=== PATIENT | female | born 1955 | race Two or more races ===

== ENCOUNTER 2024-09-30 10:47 | Outpatient (AMB) | payer OTHER, SELFPAY ==
[2024-09-30 11:09] VITALS: BP 132/83; PULSE 63; RESP 18; TEMP 37.1; O2SAT 97; BMI 27.6
--- NOTE | 2024-09-30 11:09 | ORTHONT_ITS ---
Vital signs 09/30/24 11:09 Height 1.65 m Height Method Measured Weight 75.325 kg Weight Measurement Method Standing Scale BMI 27.6 BP 132/83 H Blood Pressure Source Automatic Cuff Blood Pressure Location Left Upper Arm Position Sitting Respiration 18 Pulse 63 Pulse Source Monitor Temp 98.7 F Temp Source Oral Pulse Oximetry (%) 97 Oxygen Delivery Method Room Air Comment PT DID NOT BRING IN MEDICATION TAKING Subjective Visit Visit for: new patient and hip Immunization / Flu Flu Vaccine in the Last 12 Months: No Flu Vaccine Exclusion Criteria: Already Received History of Present Illness Chief complaint: PT HERE FOR LEFT KNEE MENISCUS TEAR HERE WITH SPOUSE Patient is a 49-pjwu-qwl-year-old female with left knee pain and left knee arthritis. The pain is affecting her quality life and happiness. She has not tried significant conservative treatment. The pain is ongoing for over a year but she has had pain really severe for over 2 months. She has had no injections or known therapy. Personal History Occupation: NONE Pain Pain level (0-10): 10 Pain duration: CONSTANT Pain location: inside (medial), outside (lateral), anterior and posterior Pain quality: sharp Pain timing: night and increases with activity Associated signs & symptoms: none Ambulatory data Ambulatory device: none Review of Systems Review of Systems: All systems negative unless otherwise noted in HPI. Exam Exam Patient is in no acute distress and is cooperative with the examination today. Breathing is nonlabored. Patient has a normal mood and affect. Bilateral extremities were evaluated and demonstrates sensation intact to light touch. Palpable pedal pulses are present. No significant edema is present. Bilateral hips were examined. The patient has no pain with log roll of the hips. Internal rotation to 30 degrees and external rotation to 30 degrees is painless. Negative FADIR. Right knee was examined today. The right knee is in reasonable alignment. Range of motion from 0-120 degrees. Knee is stable to varus and valgus as well as AP translation with <5mm. Patient has a negative McMurrays. There is no pain with patellofemoral compression and no crepitus noted. The knee is nontender to palpation. Left knee was examined today. The left knee is in [varus] alignment. Range of motion from [0-115] degrees. Knee is stable to varus and valgus as well as AP translation with <5mm. Patient has a [negative] McMurrays. There is [no] pain with patellofemoral compression and [no] crepitus noted. The knee is [tender] to palpation [medially]. X-rays from [facility] reviewed by me today. She has [id number] arthritis of the left knee. Assessment and Plan Problem List (1) Arthritis of left knee: Status: Acute Plan: Patient is a 69-year-old female with left knee pain and left knee arthritis. We discussed that we should try conservative treatment. We discussed that she has ydxg-oz-rtom arthritis and she may need a total knee replacement in future. Will start with meloxicam as well as a cortisone injection today. Recommend knee cortisone injection as patient would like to proceed with conservative treatment at this time. The risks and benefits of the procedure were reviewed with the patient and patient gave verbal consent to continue with the procedure. Procedure: performed by Dr. Jenkins Using sterile technique the left knee was thoroughly prepped with alcohol, and approximately 1 cc of Kenalog 40 mg/mL and 4 cc of 1% lidocaine was injected without resistance into the medial tibial femoral joint space. The patient tolerated the procedure. Advanced Care Planning Discussion Advance care planning discussed with:: patient Office Procedures GNS Level of Care Nursing/Assessment Patient Status: Initial/New Patient Nursing Assessment/Reassesment: BP Monitoring, Medication Reconciliation, Update PMH in EMR and Vital Signs Coordination of Care: Complex Care and Chronic Disease 1-5, Consent,records obtained, informed consent, 1 Ins Authorization, Lab and Imaging orders and Results/Orders obtained New Patient Charge New Patient Point Assignment: [id number] New Patient Point Charge: CIRCULATION REPRESENTATIVE Level 3 (6828-9990) Surgical Proc/IM SQ injection Major Surgical Procedure: Yes (KNEE INJECTION ) Medication Given Medication Given Medication Given: Yes Documented Dose Given: 4 Route: Infiitration Medication Given Medication Given Medication Given: Yes Documented Dose Given: 1 Route: Infiitration Office Meds Xylocaine 10 mg/mL (1 %) injection solution Performing Provider: Ajit Jenkins MD Performing Location: [facility] Administered by: Ajit Jenkins MD on 09/30/24 11:29 Dose Route Admin Location Dispensed Lot Number Expiration Date [facility] [employer] 20 mL Infiltration 20 mL [id number] [employer] triamcinolone acetonide 40 mg/mL suspension for injection Performing Provider: Ajit Jenkins MD Performing Location: [facility] Administered by: Ajit Jenkins MD on 09/30/24 11:29 Dose Route Admin Location Dispensed Lot Number Expiration Date [facility] Home Care Giver 40 mg intra-articular 1 mL [id number] [employer] Past Medical History Past Medical History Have you ever been diagnosed with any of the following:
== END 2024-09-30 11:31 | disposition home or self-care (01) ==
PROVIDERS: Supervising Provider Orthopaedic Surgery Adult Reconstructive Orthopaedic Surgery; Visit Provider Orthopaedic Surgery Adult Reconstructive Orthopaedic Surgery
DX: M17.12 Unilateral primary osteoarthritis, left knee (principal); M25.562 Pain in left knee
CPT/HCPCS: 20610; 99203; J3301; J3490; G0463

== ENCOUNTER 2024-11-25 14:53 | Outpatient (AMB) | payer OTHER, SELFPAY ==
[2024-11-25 15:29] VITALS: BP 122/71; PULSE 74; RESP 19; TEMP 36.6; O2SAT 98; BMI 27.5
--- NOTE | 2024-11-25 15:29 | ORTHONT_ITS ---
Vital signs 11/25/24 15:29 Height 1.65 m Height Method Stated Weight 74.928 kg Weight Measurement Method Standing Scale BMI 27.5 BP 122/71 Blood Pressure Source Automatic Cuff Blood Pressure Location Left Upper Arm Position Sitting Respiration 19 Pulse 74 Pulse Source Monitor Temp 97.8 F Temp Source Temporal Artery Scan Pulse Oximetry (%) 98 Oxygen Delivery Method Room Air Med/Allergies Allergies & Medications Allergies No Known Allergies Allergy (Verified 11/25/24 15:31) Medication Reconciliation meloxicam 7.5 mg tablet 7.5 mg PO QDAY #45 tabs 09/30/24 [Rx Confirmed 11/25/24] Exam Exam Patient is in no acute distress and is cooperative with the examination today. Breathing is nonlabored. In no respiratory distress. Bilateral extremities were evaluated and demonstrates sensation intact to light touch. Palpable pedal pulses are present. No significant edema is present. Bilateral hips were examined. The patient has no pain with log roll of the hips. Internal rotation to 30 degrees and external rotation to 30 degrees is painless. Negative FADIR. The left knee was examined. The left knee is in varus alignment. Range of motion from 0-115 degrees. Knee is stable to varus and valgus as well as AP translation with <5mm. Patient has a negative McMurrays. There is no pain with patellofemoral compression and no crepitus noted. The knee is tender to palpation medially. The right knee was also examined. The right knee is in varus alignment. Range of motion from 0-120 degrees. Knee is stable to varus and valgus as well as AP translation with <5mm. Patient has a negative McMurrays. There is no pain with patellofemoral compression and no crepitus noted. The knee is tender to palpation medially. X-rays of the left knee were personally reviewed. This demonstrates severe arthritis with osteophytes and joint space narrowing medial Assessment and Plan Problem List (1) Arthritis of left knee: Status: Acute Plan: Frances Is a pleasant 69-year-old female with severe left knee pain and left knee arthritis. The pain is affecting her quality life and happiness. She is try nonoperative treatment occluding injections and anti-inflammatories. We discussed total knee replacement as a reasonable option The nature and purpose of the total knee replacement, alternative method(s) of treatment, the material risks involved, and the possibility of complications were fully explained to the patient. The patient does NOT have any of the following contraindications to TKA: - Active infection of the knee joint, OR - Active systemic bacteremia, OR - Active skin infection or open wound at surgical site, OR - Neuropathic arthritis, OR - Severe, rapidly progressive neurological disease, OR - Severe medical condition that makes risks of surgery outweigh the potential benefit The patient was told the most common risks and complications associated with a total knee replacement include, but are not limited to: blood clots in the leg, fatal pulmonary embolism, dislocation of the prosthesis, intraoperative and postoperative fractures of the femur or tibia, infection, failure of the prosthesis or grafting materials, complications from anesthesia, reactions to blood transfusions, postoperative leg length inequality, instability of the knee replacement, nerve damage or injury, vascular injury, delayed wound healing, infection, other injury or even . In addition, there are risks associated with anesthesia given during this operation. Also, the patient was told that after undergoing a total knee replacement there may still be persistent pain or disability. The patient was informed that the success of this operation in part depends upon the mechanical devices which are going to be implanted and that these devices can fail or malfunction, and may need to be repaired or replaced and there are no guarantees as to the longevity of this device or its parts and that it or its parts could fail prematurely. The patient was also notified that during the course of surgery, there may be a need to use bone graft from donors, and that any bone graft used will be carefully screened for communicable diseases, including AIDS, hepatitis, Octavio-Creutzfeldt, or other diseases, but despite the screening procedures, there is a small chance that they could contract one of these diseases. Finally, the patient was asked to follow completely and fully with all advice and recommended treatments, and that recovery and ultimate outcome are affected by their compliance with recommended treatment. We discussed the risks, benefits and treatment alternatives, and the patient is interested in proceeding with surgery. We will try to set this up as expeditiously as possible. Advanced Care Planning Discussion Advance care planning discussed with:: patient Office Procedures GNS Level of Care Nursing/Assessment Patient Status: Established Patient Nursing Assessment/Reassesment: Medication Reconciliation, Update PMH in EMR and Vital Signs Coordination of Care: Complex Care and Chronic Disease 1-5, Education Complex Pt/Fam, Consent,records obtained, informed consent, Results/Orders obtained and Staff clarify orders Established Patient Charge Established Patient Point Assignment: 95 Established Patient Point Charge: EP Level 3 (80-115) MA Intake Visit Data Collection New Patient or Established: Established Patient (seen at [facility] within 3 years) Reason for Visit:: F/U KNEE PAIN Seen by Clinical Staff ONLY (RN/MA): No Ham Curer Required: No PCP or OBGYN visit in last 3 months: Yes Hx Now: No Do You Feel Safe at Home: Yes Authorities Contacted: N/A Questionairres Past Medical History Past Medical History Have you ever been diagnosed with any of the following: Subjective Visit Visit for: follow up visit and knee Immunization / Flu Flu Vaccine in the Last 12 Months: No Flu Vaccine Exclusion Criteria: Refused by Patient History of Present Illness Chief complaint: Left knee pain Frances is a pleasant 69-year-old female with left knee pain and left knee arthritis. This is been ongoing for several years. She is tried injections, anti-inflammatories, and weight loss modification. The pain continues to persist despite this. The injections are not working for a long period of time. The pain is affecting her quality life and happiness. She reports that she is miserable because of the left knee pain Pain Pain level (0-10): 10 Pain duration: CONSTANT Pain location: inside (medial) and anterior Pain quality: aching and burning Pain timing: night, increases with activity and stairs Associated signs & symptoms: none Ambulatory data Ambulatory device: none Treatments Improvement with previous injections: No Improvement with PT: No Improvement with NSAIDS: no Review of Systems Review of Systems: All systems negative unless otherwise noted in HPI.
== END 2024-11-25 15:55 | disposition home or self-care (01) ==
PROVIDERS: Supervising Provider Orthopaedic Surgery Adult Reconstructive Orthopaedic Surgery; Visit Provider Orthopaedic Surgery Adult Reconstructive Orthopaedic Surgery
DX: M17.12 Unilateral primary osteoarthritis, left knee (principal); M25.562 Pain in left knee
CPT/HCPCS: 99213; G0463

== ENCOUNTER 2024-12-30 10:26 | Outpatient (AMB) | payer OTHER, SELFPAY ==
[2024-12-30 10:44] VITALS: BP 156/90; PULSE 57; RESP 18; TEMP 36.1; O2SAT 98; BMI 27.1
--- NOTE | 2024-12-30 10:44 | ORTHONT_ITS ---
Vital signs 12/30/24 10:44 Height 1.65 m Height Method Stated Weight 73.709 kg Weight Measurement Method Standing Scale BMI 27.1 BP 156/90 H Blood Pressure Source Automatic Cuff Blood Pressure Location Right Upper Arm Position Sitting Respiration 18 Pulse 57 L Pulse Source Monitor Temp 96.9 F Temp Source Temporal Artery Scan Pulse Oximetry (%) 98 Oxygen Delivery Method Room Air Med/Allergies Allergies & Medications Allergies No Known Allergies Allergy (Verified 12/30/24 10:45) Medication Reconciliation meloxicam 7.5 mg tablet 7.5 mg PO QDAY #45 tabs 09/30/24 [Rx Confirmed 12/30/24] Exam Exam Patient is in no acute distress and is cooperative with the examination today. Breathing is nonlabored. In no respiratory distress. Bilateral extremities were evaluated and demonstrates sensation intact to light touch. Palpable pedal pulses are present. No significant edema is present. Bilateral hips were examined. The patient has no pain with log roll of the hips. Internal rotation to 30 degrees and external rotation to 30 degrees is painless. Negative FADIR. The left knee was examined. The left knee is in varus alignment. Range of motion from 0-115 degrees. Knee is stable to varus and valgus as well as AP translation with <5mm. Patient has a negative McMurrays. There is no pain with patellofemoral compression and no crepitus noted. The knee is tender to palpation medially. The right knee was also examined. The right knee is in varus alignment. Range of motion from 0-120 degrees. Knee is stable to varus and valgus as well as AP translation with <5mm. Patient has a negative McMurrays. There is no pain with patellofemoral compression and no crepitus noted. The knee is tender to palpation medially. X-rays of the left knee were personally reviewed. This demonstrates severe arthritis with osteophytes and joint space narrowing medial Assessment and Plan Problem List (1) Arthritis of left knee: Status: Acute Plan: Frances Is a pleasant 69-year-old female with severe left knee pain and left knee arthritis. The pain is affecting her quality life and happiness. She is try nonoperative treatment occluding injections and anti-inflammatories. We discussed total knee replacement as a reasonable option. She is still waiting for cardiology clearance. This will likely delay the surgery for a while The nature and purpose of the total knee replacement, alternative method(s) of treatment, the material risks involved, and the possibility of complications were fully explained to the patient. The patient does NOT have any of the following contraindications to TKA: - Active infection of the knee joint, OR - Active systemic bacteremia, OR - Active skin infection or open wound at surgical site, OR - Neuropathic arthritis, OR - Severe, rapidly progressive neurological disease, OR - Severe medical condition that makes risks of surgery outweigh the potential benefit The patient was told the most common risks and complications associated with a total knee replacement include, but are not limited to: blood clots in the leg, fatal pulmonary embolism, dislocation of the prosthesis, intraoperative and postoperative fractures of the femur or tibia, infection, failure of the prosthesis or grafting materials, complications from anesthesia, reactions to blood transfusions, postoperative leg length inequality, instability of the knee replacement, nerve damage or injury, vascular injury, delayed wound healing, infection, other injury or even . In addition, there are risks associated with anesthesia given during this operation. Also, the patient was told that after undergoing a total knee replacement there may still be persistent pain or disability. The patient was informed that the success of this operation in part depends upon the mechanical devices which are going to be implanted and that these devices can fail or malfunction, and may need to be repaired or replaced and there are no guarantees as to the longevity of this device or its parts and that it or its parts could fail prematurely. The patient was also notified that during the course of surgery, there may be a need to use bone graft from donors, and that any bone graft used will be carefully screened for communicable diseases, including AIDS, hepatitis, Octavio-Creutzfeldt, or other diseases, but despite the screening procedures, there is a small chance that they could contract one of these diseases. Finally, the patient was asked to follow completely and fully with all advice and recommended treatments, and that recovery and ultimate outcome are affected by their compliance with recommended treatment. We discussed the risks, benefits and treatment alternatives, and the patient is interested in proceeding with surgery. We will try to set this up as expeditiously as possible. Advanced Care Planning Discussion Advance care planning discussed with:: patient Office Procedures GNS Level of Care Nursing/Assessment Patient Status: Established Patient Nursing Assessment/Reassesment: Medication Reconciliation, Update PMH in EMR and Vital Signs Coordination of Care: Complex Care and Chronic Disease 1-5, Education Complex Pt/Fam, Consent,records obtained, informed consent, Results/Orders obtained and Staff clarify orders Established Patient Charge Established Patient Point Assignment: 95 Established Patient Point Charge: EP Level 3 (80-115) MA Intake Visit Data Collection New Patient or Established: Established Patient (seen at [facility] within 3 years) Reason for Visit:: PRE-OP LT TKA Seen by Clinical Staff ONLY (RN/MA): No Verbal consent obtained for Telemed visit?: No Property Disposal Manager Required: No PCP or OBGYN visit in last 3 months: Yes Hx Now: No Do You Feel Safe at Home: Yes Authorities Contacted: N/A Questionairres Past Medical History Past Medical History Have you ever been diagnosed with any of the following: Subjective Visit Visit for: follow up visit and knee Immunization / Flu Flu Vaccine in the Last 12 Months: No Flu Vaccine Exclusion Criteria: No Exclusion Criteria History of Present Illness Chief complaint: PRE-OP LT TKA Frances is a pleasant 69-year-old Female with severe knee pain. She was scheduled for a left total knee replacement but was told that she needs to get a model engine mechanic. Unfortunately, her model engine mechanic is back down to 22 March. We will try to find one for her so she can get a sooner appointment Pain Pain level (0-10): 10 Pain duration: ALL DAY Pain location: inside (medial), outside (lateral) and anterior Pain quality: sharp, dull and aching Pain timing: increases with activity Associated signs & symptoms: none Ambulatory data Ambulatory device: none Treatments Improvement with previous injections: No Improvement with PT: No Improvement with NSAIDS: no Review of Systems Review of Systems: All systems negative unless otherwise noted in HPI.
== END 2024-12-30 11:01 | disposition home or self-care (01) ==
LOC: HODSRG 10:26
PROVIDERS: Supervising Provider Orthopaedic Surgery Adult Reconstructive Orthopaedic Surgery; Visit Provider Orthopaedic Surgery Adult Reconstructive Orthopaedic Surgery
DX: M17.12 Unilateral primary osteoarthritis, left knee (principal)
CPT/HCPCS: 99213; G0463

== ENCOUNTER 2025-06-16 10:16 | Outpatient (AMB) | payer OTHER, SELFPAY ==
--- NOTE | 2025-06-16 10:36 | ORTHONT_ITS ---
Vital signs 06/16/25 10:37 Height 1.65 m Height Method Measured Weight 75.098 kg Weight Measurement Method Standing Scale BMI 27.6 BP 181/108 H Blood Pressure Source Automatic Cuff Blood Pressure Location Left Upper Arm Position Sitting Respiration 18 Pulse 62 Pulse Source Monitor Temp 97.8 F Temp Source Temporal Artery Scan Pulse Oximetry (%) 97 Oxygen Delivery Method Room Air Med/Allergies Allergies & Medications Allergies No Known Allergies Allergy (Verified 06/16/25 10:38) Medication Reconciliation meloxicam 7.5 mg tablet 7.5 mg PO QDAY #45 tabs 09/30/24 [Rx Confirmed 06/16/25] Assessment and Plan Advanced Care Planning Discussion Advance care planning discussed with:: patient Office Procedures GNS Level of Care Nursing/Assessment Patient Status: Established Patient Nursing Assessment/Reassesment: Medication Reconciliation, Orthostatic Vitals, Update PMH in EMR and Vital Signs Coordination of Care: Complex Care and Chronic Disease 1-5, Education Complex Pt/Fam, Consent,records obtained, informed consent, Results/Orders obtained and Staff clarify orders Established Patient Charge Established Patient Point Assignment: 105 Established Patient Point Charge: EP Level 3 (80-115) MA Intake Visit Data Collection New Patient or Established: Established Patient (seen at [facility] within 3 years) Reason for Visit:: PRE-OP LT TKA Seen by Clinical Staff ONLY (RN/MA): No Verbal consent obtained for Telemed visit?: No Picture Painter Required: No PCP or OBGYN visit in last 3 months: Yes Hx Now: No Do You Feel Safe at Home: Yes Authorities Contacted: N/A Questionairres Past Medical History Past Medical History Have you ever been diagnosed with any of the following: Respiratory Problems Smoking: No Smoking Cessation Counseling: No Smoking Exposure: No Subjective Visit Visit for: follow up visit and knee Immunization / Flu Flu Vaccine in the Last 12 Months: No Flu Vaccine Exclusion Criteria: No Exclusion Criteria History of Present Illness Chief complaint: PRE-OP LT TKA Personal History Red flag PMH: none BMI Counceling provided: Yes Pain Pain level (0-10): 10 Pain duration: ALL DAY Pain location: inside (medial), outside (lateral) and anterior Pain quality: sharp, dull and aching Pain timing: increases with activity Associated signs & symptoms: none Ambulatory data Ambulatory device: none Treatments Improvement with previous injections: No Improvement with PT: No Improvement with NSAIDS: no Review of Systems Review of Systems: All systems negative unless otherwise noted in HPI.
[2025-06-16 10:37] VITALS: BP 181/108; PULSE 62; RESP 18; TEMP 36.6; O2SAT 97; BMI 27.6
== END 2025-06-16 11:34 | disposition home or self-care (01) ==
LOC: HODSRG 10:16
PROVIDERS: PCP Orthopaedic Surgery Adult Reconstructive Orthopaedic Surgery; Referring Provider Orthopaedic Surgery Adult Reconstructive Orthopaedic Surgery; Supervising Provider Orthopaedic Surgery Adult Reconstructive Orthopaedic Surgery; Visit Provider Orthopaedic Surgery Adult Reconstructive Orthopaedic Surgery
DX: Z01.818 Encounter for other preprocedural examination (principal)
CPT/HCPCS: 99213; G0463

== ENCOUNTER → 2025-07-03 | Outpatient (CLI) | payer OTHER, SELFPAY ==
--- NOTE | 2025-07-03 12:34 | XR_ITS ---
Examination: CT left lower extremity, without contrast. 2-D sagittal reconstructions. 2-D coronal reconstructions. 3-D reconstructions. Date and time of exam:July 03, 2025, 1336 hours INDICATIONS: Diagnosis left knee unilateral osteoarthritis, knee pain several years CTDI: vol (mGy):25.47 DLP: (mGycm):951 Technique: Multiple 1.25 mm axial sections of the left lower extremity without intravenous contrast have been obtained. 2-D sagittal and coronal reconstructions have been obtained. 3-D reconstructions have been obtained. Low dose protocols were performed. One or more of the following dose reduction techniques were used; automated exposure control, adjustment of the mA and/or KV according to patient size, use of iterative reconstruction technique. Findings: Moderate osteopenia Mild to moderate narrowing hip joints Advanced left knee tricompartment osteoarthritis including severe narrowing medial joint space No fracture No avascular necrosis IMPRESSION: Advanced left knee tricompartment osteoarthritis
--- NOTE | 2025-07-03 12:56 | XR_ITS ---
Examination: Bilateral knees 2 views Right lateral knee left lateral knee 2 views Bilateral axial knees single view TECHNIQUE: Bilateral AP knees standing single view, bilateral PA knees standing single view flexion Standing right lateral knee left lateral knee 2 views Bilateral axial knees single view total 5 views Date and time: July 03, 2025 1300 hours INDICATIONS: Bilateral knee pain beginning several years ago. FINDINGS: Advanced narrowing [id number] both medial lateral joint spaces Severe osteopenia Significant osteoarthritis patellofemoral joints Bilateral mild to moderate knee effusions No fractures IMPRESSION: Bilateral advanced tricompartment osteoarthritis
== END | disposition home or self-care (01) ==
LOC: CCTX 12:22
PROVIDERS: Referring Provider Orthopaedic Surgery Adult Reconstructive Orthopaedic Surgery; Visit Provider Orthopaedic Surgery Adult Reconstructive Orthopaedic Surgery
DX: M17.0 Bilateral primary osteoarthritis of knee (principal)
CPT/HCPCS: 73564; 73700

== ENCOUNTER → 2025-07-08 | Outpatient (CLI) | payer OTHER, SELFPAY ==
--- NOTE | 2025-07-08 10:16 | XR_ITS ---
Examination: CT left lower extremity without intravenous contrast, 2-D sagittal reconstructions. 2-D coronal reconstructions. 3-D reconstructions. Date and time of exam:July 08, 2025 1030 hours INDICATIONS: Diagnosis primary lateral left knee osteoarthritis, left knee pain several years CTDI: vol (mGy):9.77 DLP: (mGycm):694 Technique: Multiple 1.25 mm axial sections of the left shoulder show knee without intravenous contrast have been obtained. 2-D sagittal and coronal reconstructions have been obtained. 3-D reconstructions have been obtained. Low dose protocols were performed. One or more of the following dose reduction techniques were used; automated exposure control, adjustment of the mA and/or KV according to patient size, use of iterative reconstruction technique. Findings: Significant osteopenia Mild to moderate narrowing left hip joint. No left hip fracture or dislocation Severe narrowing medial joint space left knee Significant osteoarthritis lateral and patellofemoral joints No fractures IMPRESSION: Severe narrowing medial joint space left knee Significant osteoarthritis lateral and patellofemoral joints
== END | disposition home or self-care (01) ==
LOC: CCTX 10:06
PROVIDERS: Referring Provider Orthopaedic Surgery Adult Reconstructive Orthopaedic Surgery; Visit Provider Orthopaedic Surgery Adult Reconstructive Orthopaedic Surgery
DX: M17.12 Unilateral primary osteoarthritis, left knee (principal); M25.862 Other specified joint disorders, left knee
CPT/HCPCS: 73700

== ENCOUNTER 2025-07-15 05:45 | Day surgery (SDC) | payer OTHER, SELFPAY ==
--- NOTE | 2025-07-09 06:40 | EKG_ITS ---
[facility] Test Date: 2025-07-09 Pat Name: ISHMAEL MORENO Department: Room: - Gender: Female [employer] Lead: ANTON : 1955 Requested By: Matt Olsen Order Number: [id number] Reading MD: Matt Olsen Measurements Intervals Ulysses Rate: 61 P: 37 IA: 145 QRS: 26 QRSD: 73 T: -11 QT: 411 QTc: 416 Interpretive Statements SINUS RHYTHM NONSPECIFIC T-WAVE ABNORMALITY No previous ECG available for comparison /[id number]/[id number]
[2025-07-09 08:42] VITALS: BMI 27.1
[2025-07-09 10:05] LABS: Basophils # (Auto) 0.0 Thou/mm3 (0.0-0.2); Basophils % (Auto) 1 % (0-2.5); Eosinophils # (Auto) 0.2 Thou/mm3 (0.0-0.5); Eosinophils % (Auto) 4 % (0-10); Hematocrit 38.9 % (36.0-46.0); Hemoglobin 13.2 g/dL (12.0-16.0); Immature Granulocytes Auto 0.01 Thou/mm3 (0.00-0.00); Lymphocytes # (Auto) 1.5 Thou/mm3 (1.0-4.8); Lymphocytes % (Auto) 31 % (10-50); Mean Corpuscular HGB Conc 33.9 g/dl (31.0-37.0); Mean Corpuscular Hemoglobin 28.5 pg (25.0-35.0); Mean Corpuscular Volume 84 fL (80-100); Monocytes # (Auto) 0.4 Thou/mm3 (0.0-0.8); Monocytes % (Auto) 7 % (0-12); Neutrophils # (Auto) 2.7 Thou/mm3 (1.8-7.7); Neutrophils % (Auto) 56 % (37-80); Nucleated Red Blood Cell # 0.00 Thou/mm3 (0.00-0.00); Nucleated Red Blood Cell % 0 /100 WBC (0); Platelet Count 291 Thou/mm3 (140-440); RDW Standard Deviation 41.2 fL (36.4-46.3); Red Blood Count 4.63 Miln/mm3 (4.00-5.20); White Blood Count 4.8 Thou/mm3 (3.6-11.0)
[2025-07-09 10:13] LABS: INR 1.0 (0.9-1.3); Partial Thromboplastin Time 27.0 Seconds (22.0-36.0); Prothrombin Time 10.9 Seconds (9.0-12.2)
[2025-07-09 10:23] LABS: Alanine Aminotransferase 17 U/L (10-49); Albumin, Serum 4.5 gm/dL (3.4-4.8); Albumin/Globulin Ratio 1.8 (1.2-2.2); Alkaline Phosphatase 96 U/L (46-116); Anion Gap 9 (7-16); Aspartate Amino Transferase 24 U/L (0-34); BUN/Creatinine Ratio 11 Ratio (12-20); Bilirubin,Total 0.7 mg/dL (0.3-1.2); Blood Urea Nitrogen 11 mg/dL (9-23); Calcium 9.9 mg/dL (8.3-10.6); Calcium (Corrected) 9.9 mg/dL (8.5-10.1); Carbon Dioxide 26.3 mMol/L (20.0-31.0); Chloride 107 mMol/L (98-107); Creatinine (Component) 1.0 mg/dL (0.6-1.3); Estimated Creatinine Clearance 52.7 mL/min (>60); Globulin 2.5 gm/dL (2.3-3.5); Glucose 106 mg/dL (74-106); Osmolality,Calculated 282 (275-295); Potassium 4.0 mMol/L (3.4-5.1); Sodium 142 mMol/L (136-145); Total Protein 7.0 gm/dL (5.7-8.2); eGFR > 60 See Note
--- NOTE | 2025-07-14 14:32 | SUR.PREOP ---
Message left with Pt's to come in tomorrow at 0545 for surgery.
--- NOTE | 2025-07-14 14:38 | SUR.PREOP ---
Pt called back, knowledges to be here at 0545 tomorrow for surgery.
[2025-07-15] VITALS (17 sets, daily range): BP systolic 105–152; BP diastolic 59–88; PULSE 65–91; RESP 13–20; TEMP 36.2–36.6; O2SAT 95–100; BMI 27.1; BMI 13.0
[2025-07-15] MEDS: PREGABALIN 75 MG CAPSULE PO (06:34)
[2025-07-15] MEDS: MELOXICAM 7.5 MG TABLET PO (06:34)
[2025-07-15] MEDS: ACETAMINOPHEN 325 MG TABLET 650 MG PO (06:34)
[2025-07-15] MEDS: RINGERS LACTATED 1000 ML 1,000 ML 20 ML IV (06:35)
--- NOTE | 2025-07-15 07:15 | CHAP ---
Visited with patient and spouse giving comfort, encouragement and prayer.
--- NOTE | 2025-07-15 07:24 | ESOP_ITS ---
Date of Procedure 07/15/25 Pre Op Diagnosis left knee osteoarthritis Post Op Diagnosis left knee osteoarthritis Procedure left heide total knee replacement Findings full thickness cartilage loss and osteophytes Procedure Description Indication: The patient has a long history of left knee pain. X-rays show degenerative arthritis involving the knee. Over the past several years the patient has had increasing pain, progressive limitation in function. He has failed conservative measures including activity modification, physical therapy, injections, anti- inflammatories, and assistive devices. After a lengthy discussion of the risks and benefits, the patient presents now for total knee replacement. The nature and purpose of the total knee replacement, alternative method(s) of treatment, the material risks involved, and the possibility of complications were fully explained to the patient. The patient was told the most common risks and complications associated with a total knee replacement include, but are not limited to blood clots in the leg, fatal pulmonary embolism, dislocation of the prosthesis, intraoperative and postoperative fractures of the femur or tibia, infection, failure of the prosthesis or grafting materials, complications from anesthesia, reactions to blood transfusions, postoperative leg length inequality, instability of the knee replacement, nerve damage or injury, vascular injury, delayed wound healing, infections, other injury or even . In addition, there are risks associated with anesthesia given during this operation, temporary or permanent numbness on the skin lateral to the incision can be a complication unique to total knee surgery, and kneeling can be painful after knee replacement surgery. Also, the patient was told that after undergoing a total knee replacement there may still be pain or disability. We discussed with the patient that we will be using a robot-assisted technology. We discussed that there is a possibility of converting to manual instrumentation. The patient was informed that the success of this operation in part depends upon the mechanical devices which are going to be implanted and that these devices can fail or malfunction, and may need to be repaired or replaced and there are no guarantees as to the longevity of this device or its part and that it or its parts could fail prematurely. Finally, the patient was asked to follow completely and fully with all advice and recommended treatments, and that recovery and ultimate outcome are affected by their compliance with recommended treatment. Surgical technique: Patient was marked and consented in the pre-operative area. The patient was brought to the operating room and placed on the operating table in a supine position. Prior to positioning, a timeout procedure was performed between the surgeon, the anesthesiologist, and the nursing staff where the patient and the operative side were identified and confirmed. After adequate general anesthetic was obtained, the left lower extremity was prepped and draped in the usual sterile fashion. A weight based dose of Cefazolin were administered within 1 ozzy r prior to incision. The robot was preregistered and calibrated before the incision. The extremity was exsanguinated with an esmarch badge and tourniquet inflated to 250mmHg. A midline incision was made. A median parapatellar arthrotomy was made. The patella was subluxed laterally. A medial release was performed to expose the medial tibia. His femoral and tibial pins were placed through an intra incisional manner for both cases. Every effort was made to ensure that the distalmost aspect of the pin was hung in the second cortex. The arrays were then tightened several times to ensure that it was fixed for the remainder of the case. Both femoral and tibial checkpoints were then placed. We then went through the registration process of the bone. We then assessed the knee deformity and attempted to correct it. We also used the robot to aid in judging laxity in both extension and flexion. Final based on laxity and alignment we changed the preoperative assessment to obtain proper proper implant positioning and to correct deformity. Attention was then placed to the tibia. We made a tibial cut using the robot ensuring that both the MCL and the patella tendon were protected with retractors. We then went to the femur and made the posterior cut followed by the anterior cut and the anterior chamfer. The bone was then removed and we made a distal femur cut and a posterior chamfer cut. We verified all cuts. A trial reduction was performed with a size 4 femoral component and a size 4 keeled tibial component. T The patella tracked centrally, and no lateral retinacular release was necessary. The trial implants were removed. The arrays, pins, and checkpoints were all removed. We performed a verification that all pins were removed. The cut bone surfaces were lavaged. A size 4 left femoral component, a size 4 keeled tibial component were impacted into position. The knee was felt to be well balanced in the sagittal and coronal plane. The final 2x10 mm cruciate- substituting articular insert was impacted into the tibial tray. The knee was brought out to full extension, flexed up to 120 degrees. It was stable to varus and valgus stress and appropriately balanced in flexion and extension. The wounds were copiously irrigated following deflation of tourniquet. The medial retinaculum was reapproximated with #1 vicryl and quill. The subcutaneous tissues were closed with 0 and 2-0 interrupted Vicryl. The skin was closed with 3-0 Monofilament V loc suture. A sterile dressing was applied. The patient was transferred to a bed and brought to recovery in stable condition. The patient tolerated the procedure well. There were no intraoperative complications. Sponge and needle counts were correct times 2. As the attending surgeon, Shalonda vinson I was present and performed the entire operation. Grafts/Implants Size 4 CR Femur Size 4 Tibia 11mm poly CS Anesthesia spinal Pathology / specimen None Pathology comment: none Estimated Blood Loss 150 Condition Stable Disposition same day Surgeon Ajit Jenkins MD Surgical Staff Operation Date: 07/15/25 07:30 <No data on this case meets the specified criteria>
--- NOTE | 2025-07-15 09:27 | XR_ITS ---
Examination: Left knee 2 views Technique one AP lateral left knee 2 views Date and time: July 15, 2025, 10:54 AM INDICATIONS: Postop knee arthroplasty today. FINDINGS: Total left knee arthroplasty. Satisfactory alignment. No fracture. Prominent osteopenia IMPRESSION: Total left knee arthroplasty with satisfactory alignment
--- NOTE | 2025-07-15 09:56 | SUR.PHASEI ---
0956 patient arrived to recovery resting comfortably in [facility], drowsy and talking with staff, breathing unlabored, vital signs stable, dressing intact to left knee; prineo, abd, telfa, webril, jimmy wraps, no bleeding noted, bilateral dorsalis pedis pulses present when palpated, post spinal anesthesia assessment via ice patient has dermatome sensation at L5, will continue to monitor, patient has good circulation to left lower extremity; skin color normal for patient and warm to touch, report received from Dr. Olsen and Maria Teresa SHIELDS
[2025-07-15] MEDS: fentaNYL CIT INJ 50 mCg/ML AMP 2ML IVP ×2 (10:06→10:26)
[2025-07-15] MEDS: ONDANSETRON INJ 2 MG/ML INJ 2 ML 4 MG IVP (10:12)
[2025-07-15] MEDS: ACETAMINOPHEN IVPB 1,000 MG/100 ML VIAL 250 MG IV (10:32)
[2025-07-15] MEDS: oxyCODONE HCL 5 MG IR TAB PO (11:26)
--- NOTE | 2025-07-15 12:33 | SUR.PHASEII ---
patient ate 50% of lunch, tolerated
--- NOTE | 2025-07-15 13:29 | SUR.PHASEII ---
1329 patient cleared by physical therapy to proceed with discharge
--- NOTE | 2025-07-15 14:03 | SUR.PHASEII ---
1403 Patient meets discharge criteria from recovery, awake and alert, breathing unlabored, vital signs stable, per patient her pain is tolerable, dressing intact; no bleeding noted, voided in the restroom, denies nausea, assisted with dressing into her clothing by her , discharge instructions given to patient and patients , signed discharge instructions. Patient given all her belongings prior to discharge, transported via wheelchair and left in a private vehicle.
--- NOTE | 2025-07-21 13:08 | PD.ANESPROG ---
Documentation for date of: 07/21/25 POST ANESTHESIA NOTE: Patient had spinal anesthesia and L adductor canal block for L TKA on 07/15/25. I just called her number for follow up but no answer. Matt Olsen MD Anesthesia Progress Note Progress Note Most recent Vital Signs: Last Vital Signs Temp 97.5 F 07/15/25 13:11 Pulse 84 07/15/25 13:41 Resp 17 07/15/25 13:41 BP 131/85 H 07/15/25 13:41 Pulse Ox 95 07/15/25 13:41 O2 Flow Rate 3 07/15/25 10:41
== END 2025-07-15 14:03 | disposition home or self-care (01) ==
PROVIDERS: Anesthesiology; Referring Provider Orthopaedic Surgery Adult Reconstructive Orthopaedic Surgery; Visit Provider Orthopaedic Surgery Adult Reconstructive Orthopaedic Surgery
PROC: (CPT 20985; principal; 2025-07-15 07:30)
DX: M17.12 Unilateral primary osteoarthritis, left knee (principal); M25.762 Osteophyte, left knee; Z01.810 Encounter for preprocedural cardiovascular examination
CPT/HCPCS: 20985; 27447; 36415; 73560; 80053; 85025; 85610; 85730; 93005; 97163; A4217; A4649; C1713; C1776; J0131; J0690; J1100; J2250; J2371; J2405; J2704; J2795; J3010; J3490; J7030; J7120; J7999; A4648; A9270

== ENCOUNTER 2025-07-22 13:59 | Outpatient (AMB) | payer OTHER, SELFPAY ==
--- NOTE | 2025-07-22 14:12 | PD.ORTHCLVIS ---
Vital signs 07/22/25 14:13 Height 1.65 m Height Method Measured Weight 73.652 kg Weight Measurement Method Standing Scale BMI 27.0 BP 144/75 H Blood Pressure Source Automatic Cuff Blood Pressure Location Left Upper Arm Position Sitting Respiration 18 Pulse 88 Pulse Source Monitor Temp 97.7 F Temp Source Temporal Artery Scan Pulse Oximetry (%) 97 Oxygen Delivery Method Room Air Med/Allergies Allergies & Medications Allergies codeine Allergy (Intermediate, Verified 07/22/25 14:15) Headache Medication Reconciliation amlodipine 10 mg tablet 10 mg PO DAILY 07/09/25 [History Confirmed 07/22/25] atorvastatin 40 mg tablet 40 mg PO DAILY 07/09/25 [History Confirmed 07/22/25] fluoxetine 20 mg capsule 20 mg PO DAILY 07/09/25 [History Confirmed 07/22/25] losartan 50 mg tablet 50 mg PO DAILY 07/09/25 [History Confirmed 07/22/25] aspirin 81 mg tablet,delayed release 81 mg PO BID #60 tabs 07/15/25 [Rx Confirmed 07/22/25] doxycycline hyclate 100 mg tablet 100 mg PO BID #14 tabs 07/15/25 [Rx Confirmed 07/22/25] gabapentin 300 mg capsule 300 mg PO .qhs #30 caps 07/15/25 [Rx Confirmed 07/22/25] sennosides 8.6 mg-docusate sodium 50 mg tablet (Senna-S) 1 tab-cap PO QDAY #30 tabs 07/15/25 [Rx Confirmed 07/22/25] acetaminophen 500 mg tablet (Acetaminophen Extra Strength) 1,000 mg (2 x 500 mg) PO Q6H PRN pain #90 tabs 07/22/25 [Rx Confirmed 07/22/25] oxycodone 5 mg tablet 5 mg PO Q6H PRN pain #28 tabs 07/22/25 [Rx Confirmed 07/22/25] Exam Exam Patient is in no acute distress and is cooperative with the examination today. Breathing is nonlabored. In no respiratory distress. Bilateral extremities were evaluated and demonstrates sensation intact to light touch. Palpable pedal pulses are present. No significant edema is present. Bilateral hips were examined. The patient has no pain with log roll of the hips. Internal rotation to 30 degrees and external rotation to 30 degrees is painless. Negative FADIR. The left knee was examined. The left knee is in varus alignment. Range of motion from 0-115 degrees. Knee is stable to varus and valgus as well as AP translation with <5mm. Patient has a negative McMurrays. There is no pain with patellofemoral compression and no crepitus noted. The knee is tender to palpation medially. The right knee was also examined. The right knee is in varus alignment. Range of motion from 0-120 degrees. Knee is stable to varus and valgus as well as AP translation with <5mm. Patient has a negative McMurrays. There is no pain with patellofemoral compression and no crepitus noted. The knee is tender to palpation medially. X-rays of the left knee were personally reviewed. This demonstrates severe arthritis with osteophytes and joint space narrowing medial Assessment and Plan Problem List (1) Arthritis of left knee: Status: Acute Plan: Frances Is a pleasant 69-year-old female with severe left knee pain and left knee arthritis. He is doing well status post left total knee replacement. She is not taking any Tylenol and reports that she still has pain. We discussed that the Tylenol should be taken in conjunction with oxycodone as they work together. We Will see her back in 4 weeks for routine follow-up. She should start therapy Advanced Care Planning Discussion Advance care planning discussed with:: patient Office Procedures GNS Level of Care Nursing/Assessment Patient Status: Established Patient Nursing Assessment/Reassesment: Medication Reconciliation, Update PMH in EMR and Vital Signs Coordination of Care: Complex Care and Chronic Disease 1-5, Education Complex Pt/Fam, Consent,records obtained, informed consent, Results/Orders obtained and Staff clarify orders Established Patient Charge Established Patient Point Assignment: 95 Established Patient Point Charge: EP Level 3 (80-115) MA Intake Visit Data Collection New Patient or Established: Established Patient (seen at [facility] within 3 years) Reason for Visit:: 2 WEEK LEFT TKA Seen by Clinical Staff ONLY (RN/MA): No Verbal consent obtained for Telemed visit?: No Senior Devops 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 Required: No PCP or OBGYN visit in last 3 months: Yes Hx Now: No Do You Feel Safe at Home: Yes Authorities Contacted: N/A Questionairres Past Medical History Past Medical History Have you ever been diagnosed with any of the following: Neurological Problems Seizures: No Cardiology Problems Hypercholesterolemia: Yes Congestive Heart Failure: No Hypertension: Yes Respiratory Problems Chronic Obstructive Pulmonary Disease (COPD): No Smoking: No Smoking Cessation Counseling: No Smoking Exposure: No Stomache/Intestinal Problems Obesity: Yes Genital/Urinary Problems Renal Disease: No Reproductive Problems Previous Pregnancies: Yes Musculoskeletal Problems Arthritis: Yes Endocrine Problems Diabetes Mellitus Type 1: No Diabetes Mellitus Type 2: No Psychologic Problems Depression: Yes Other Problems Hospitalization: No Shingles: No Blood Transfusions: No Blood Transfusion Reaction: No Anesthesia Reactions: No Chicken Pox: Yes Cancer: No Subjective Visit Visit for: follow up visit, post op #1, knee and other (specify) Immunization / Flu Flu Vaccine in the Last 12 Months: Yes Flu Vaccine Exclusion Criteria: Already Received History of Present Illness Chief complaint: 2 WEEK POST OP LEFT TKA Frances is a pleasant 69-year-old Female with Status post left total knee replacement. She is doing well. Pain Pain level (0-10): 10 Pain duration: ALL DAY Pain location: inside (medial), outside (lateral) and anterior Pain quality: sharp, dull and aching Pain timing: increases with activity Associated signs & symptoms: none Ambulatory data Ambulatory device: none Treatments Improvement with previous injections: No Improvement with PT: No Improvement with NSAIDS: no Review of Systems Review of Systems: All systems negative unless otherwise noted in HPI.
[2025-07-22 14:13] VITALS: BP 144/75; PULSE 88; RESP 18; TEMP 36.5; O2SAT 97; BMI 27.0
== END 2025-07-22 14:21 | disposition home or self-care (01) ==
LOC: HODSRG 13:59
PROVIDERS: Supervising Provider Orthopaedic Surgery Adult Reconstructive Orthopaedic Surgery; Visit Provider Orthopaedic Surgery Adult Reconstructive Orthopaedic Surgery
DX: M17.12 Unilateral primary osteoarthritis, left knee (principal); M25.562 Pain in left knee; Z96.652 Presence of left artificial knee joint; I10 Essential (primary) hypertension; E78.00 Pure hypercholesterolemia, unspecified; F32.A Depression, unspecified; E66.9 Obesity, unspecified; Z68.27 Body mass index [BMI] 27.0-27.9, adult
CPT/HCPCS: 99213; G0463

== ENCOUNTER 2025-08-19 12:50 | Outpatient (RCR) | payer OTHER, SELFPAY ==
--- NOTE | 2025-08-19 13:34 | PT.OIERPT ---
PT OP Initial Eval Patient Information Outpatient Physical Therapy Treatment Date: 08/19/25 Visit Reasons: post op left knee Medical Diagnosis: Left Knee OA; Left Knee Pain Treatment Dx #1: Left Knee Mobility Deficits Treatment Dx #2: Left Knee Weakness Start of Care: 08/19/25 Date of Onset: 07/15/25 Smoking Status Smoking Status: Never smoker Initial Assessment Subjective: Pt is a 70 y/o female s/p left TKA 07/15/25. Pt received 4-5 sessions of homehealth PT. Pt still has knee pain (8/10) with all activities. Pt has limitation with standing, walking, chores, self care, balance, stairs, squatting, and performing recreational activities. Objective: Left Knee AROM: -15 deg to 45 deg Left Knee PROM: -10 deg to 52 deg Left Knee MMTs: grossly 3-/5 Left Hip MMTs: grossly 3-/5 Active SLR: 30 deg SLS: unable Assessment: Pt demonstrate left knee mobility and strength deficits s/p TKA leading to difficulty with ADLs. Pt will benefit from physical therapy to increase ROM, strength, and work on ambulation. 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
== END 2025-08-21 23:59 | disposition home or self-care (01) ==
LOC: CPTX 12:50
PROVIDERS: PCP Orthopaedic Surgery Adult Reconstructive Orthopaedic Surgery; Referring Provider Orthopaedic Surgery Adult Reconstructive Orthopaedic Surgery; Visit Provider Orthopaedic Surgery Adult Reconstructive Orthopaedic Surgery
DX: Z47.1 Aftercare following joint replacement surgery (principal); Z96.652 Presence of left artificial knee joint; M25.562 Pain in left knee; R53.1 Weakness; R26.2 Difficulty in walking, not elsewhere classified; R26.89 Other abnormalities of gait and mobility
CPT/HCPCS: 97162

== ENCOUNTER 2025-08-27 10:23 | Outpatient (AMB) | payer OTHER, SELFPAY ==
--- NOTE | 2025-08-27 10:48 | ORTHONT_ITS ---
Vital signs 08/27/25 10:49 Height 1.65 m Height Method Stated Weight 72.32 kg Weight Measurement Method Standing Scale BMI 26.5 BP 156/81 H Blood Pressure Source Automatic Cuff Blood Pressure Location Left Upper Arm Position Sitting Respiration 18 Pulse 70 Pulse Source Monitor Temp 97.9 F Temp Source Temporal Artery Scan Pulse Oximetry (%) 95 Oxygen Delivery Method Room Air Med/Allergies Allergies & Medications Allergies codeine Allergy (Intermediate, Verified 08/27/25 10:49) Headache Medication Reconciliation amlodipine 10 mg tablet 10 mg PO DAILY 07/09/25 [History Confirmed 08/27/25] atorvastatin 40 mg tablet 40 mg PO DAILY 07/09/25 [History Confirmed 08/27/25] fluoxetine 20 mg capsule 20 mg PO DAILY 07/09/25 [History Confirmed 08/27/25] losartan 50 mg tablet 50 mg PO DAILY 07/09/25 [History Confirmed 08/27/25] aspirin 81 mg tablet,delayed release 81 mg PO BID #60 tabs 07/15/25 [Rx Confirmed 08/27/25] doxycycline hyclate 100 mg tablet 100 mg PO BID #14 tabs 07/15/25 [Rx Confirmed 08/27/25] sennosides 8.6 mg-docusate sodium 50 mg tablet (Senna-S) 1 tab-cap PO QDAY #30 tabs 07/15/25 [Rx Confirmed 08/27/25] acetaminophen 500 mg tablet (Acetaminophen Extra Strength) 1,000 mg (2 x 500 mg) PO Q6H PRN pain #90 tabs 07/22/25 [Rx Confirmed 08/27/25] oxycodone 5 mg tablet 5 mg PO Q6H PRN pain #28 tabs 07/22/25 [Rx Confirmed 08/27/25] gabapentin 300 mg capsule 300 mg PO .qhs #30 caps 08/27/25 [Rx] Exam Exam Patient is in no acute distress and is cooperative with the examination today. Breathing is nonlabored. In no respiratory distress. Bilateral extremities were evaluated and demonstrates sensation intact to light touch. Palpable pedal pulses are present. No significant edema is present. Bilateral hips were examined. The patient has no pain with log roll of the hips. Internal rotation to 30 degrees and external rotation to 30 degrees is painless. Negative FADIR. Left knee incisions clean dry intact. Range of motion is 5 to 75 degrees Assessment and Plan Problem List (1) Arthritis of left knee: Status: Acute Plan: Frances Is a pleasant 69-year-old female with severe left knee pain and left knee arthritis. He is doing well status post left total knee replacement. She was a little late to start physical therapy. Her knee is stiff at this time. She can get the second bodies of flexion. She reports that her range of motion continues to improve. I discussed with her that should her range of motion not improve significantly within the next 3 weeks we would recommend manipulation. She will work aggressively with physical therapy every time. Advanced Care Planning Discussion Advance care planning discussed with:: patient Office Procedures GNS Level of Care Nursing/Assessment Patient Status: Established Patient Nursing Assessment/Reassesment: Medication Reconciliation, Update PMH in EMR and Vital Signs Coordination of Care: Complex Care and Chronic Disease 1-5, Education Complex Pt/Fam, Consent,records obtained, informed consent, Results/Orders obtained and Staff clarify orders Established Patient Charge Established Patient Point Assignment: 95 Established Patient Point Charge: EP Level 3 (80-115) MA Intake Visit Data Collection New Patient or Established: Established Patient (seen at [facility] within 3 years) Reason for Visit:: 6 WK L TKA Seen by Clinical Staff ONLY (RN/MA): No Verbal consent obtained for Telemed visit?: No Model 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 Person Required: No PCP or OBGYN visit in last 3 months: Yes Hx Now: No Do You Feel Safe at Home: Yes Authorities Contacted: N/A Questionairres Past Medical History Past Medical History Have you ever been diagnosed with any of the following: Neurological Problems Seizures: No Cardiology Problems Hypercholesterolemia: Yes Congestive Heart Failure: No Hypertension: Yes Respiratory Problems Chronic Obstructive Pulmonary Disease (COPD): No Smoking: No Smoking Cessation Counseling: No Smoking Exposure: No Stomache/Intestinal Problems Obesity: Yes Genital/Urinary Problems Renal Disease: No Reproductive Problems Previous Pregnancies: Yes Musculoskeletal Problems Arthritis: Yes Endocrine Problems Diabetes Mellitus Type 1: No Diabetes Mellitus Type 2: No Psychologic Problems Depression: Yes Other Problems Hospitalization: No Shingles: No Blood Transfusions: No Blood Transfusion Reaction: No Anesthesia Reactions: No Chicken Pox: Yes Cancer: No Subjective Visit Visit for: follow up visit, post op #3 and knee Immunization / Flu Flu Vaccine in the Last 12 Months: Yes Flu Vaccine Exclusion Criteria: Already Received History of Present Illness Chief complaint: 6 WK L TKA Frances is a pleasant 69-year-old Female with Status post left total knee replacement. She is doing well. She is 6 weeks status post total knee replacement to start physical therapy 1 week ago. Pain Pain level (0-10): 10 Pain duration: ALL DAY Pain location: inside (medial), outside (lateral) and anterior Pain quality: sharp, dull and aching Pain timing: increases with activity Associated signs & symptoms: none Ambulatory data Ambulatory device: walker Treatments Improvement with previous injections: No Improvement with PT: No Improvement with NSAIDS: no Review of Systems Review of Systems: All systems negative unless otherwise noted in HPI.
[2025-08-27 10:49] VITALS: BP 156/81; PULSE 70; RESP 18; TEMP 36.6; O2SAT 95; BMI 26.5
--- NOTE | 2025-08-27 11:01 | XR_ITS ---
EXAMINATION: Bilateral knees single view Left knee PA lateral axial 3 views TECHNIQUE: Bilateral AP knees standing single view Standing PA flexion left knee, standing lateral left knee, axial left knee 3 views total 4 views Date and time: August 27, 2025, 1120 hours INDICATIONS: Chronic knee pain years, history left knee arthroplasty FINDINGS: Advanced osteoarthritis medial lateral joint space right knee Total left knee arthroplasty. Satisfactory alignment. No loosening of the prosthetic components. No patellar dislocation IMPRESSION: Total left knee arthroplasty with satisfactory alignment
== END 2025-08-27 11:02 | disposition home or self-care (01) ==
LOC: HODSRG 10:23
PROVIDERS: Supervising Provider Orthopaedic Surgery Adult Reconstructive Orthopaedic Surgery; Visit Provider Orthopaedic Surgery Adult Reconstructive Orthopaedic Surgery
DX: Z47.1 Aftercare following joint replacement surgery (principal); Z96.652 Presence of left artificial knee joint; M25.562 Pain in left knee; I10 Essential (primary) hypertension
CPT/HCPCS: 73564; 99213; G0463

== ENCOUNTER 2025-09-14 08:30 | Outpatient (RCR) | payer OTHER, SELFPAY ==
--- NOTE | 2025-08-25 10:57 | PTNOTE_ITS ---
PT Outpatient Daily Note OP Daily Note Outpatient Physical Therapy Treatment Date: 08/25/25 Visit Reasons: left knee surgery Subjective: Pt's knee is hurting more. Pt mentioned she's not doing too well due to pain. Objective: Please see flow chart for list of ther ex performed Assessment: limited with progress in therapy today due to pain. Cues to push off in preswing due to toe pain and stiffness. 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
--- NOTE | 2025-08-27 10:04 | PT.ODAYNRPT ---
PT Outpatient Daily Note OP Daily Note Outpatient Physical Therapy Treatment Date: 08/27/25 Visit Reasons: left knee surgery Subjective: Pt c/o pain and stiffness. Objective: Please see flow sheet for ther ex list. Assessment: Pt demonstrates poor activity tolerance and highly guarded, refused PROM to L knee. Pt educated on benefits of early mobilization to prevent scar adhesion and contracture, pt refused manual ROM and requested to be done with interventoins for now. Applied cold pack at end of session. Plan: Continue with POC. Length of Time (minutes) of Treatment: 30 Minutes NURSES' REGISTRY DIRECTOR Service Modifier Method I: Divide the number of min of care provided by the NURSES' REGISTRY DIRECTOR/BRADLEY by the total min of care provided then multiply by 100. If greater than 11 percent modifier is required. Method II: Divide the total time of care provided to patient by 10 (round to the nearest whole number) and add 1 min. to set the minimum time requirement. If treatment total was 60 min., then 10% of 6 min PT CQ modifier applied: CQ Modifier applied Procedure Charges Therapeutic Exercise 30 minutes: Yes
--- NOTE | 2025-09-02 09:14 | PT.ODAYNRPT ---
PT Outpatient Daily Note OP Daily Note Outpatient Physical Therapy Treatment Date: 09/02/25 Visit Reasons: left knee surgery Subjective: Pt reports L knee is stiff and does not want to have a manipulation. Pt shared that she has been compliant with HEP. Objective: Please see flow sheet for ther ex list. Assessment: Worked on improving knee flexion during swing phase and heel strike, pt able to replicate after multiple attempts. Plan: Continue with poC. Length of Time (minutes) of Treatment: 30 Minutes Procedure Charges Therapeutic Exercise 30 minutes: Yes
--- NOTE | 2025-09-04 09:23 | PTNOTE_ITS ---
PT Outpatient Daily Note OP Daily Note Outpatient Physical Therapy Treatment Date: 09/04/25 Visit Reasons: left knee surgery Subjective: Pt's knee is better and able to bend her knee more with walking. Pt still has difficulty laying on the side due to knee pain and sensitivity Objective: Please see flow chart for list of ther ex performed Assessment: Pt had difficulty with passive stretching due to pain, however, able to complete recommended reps. 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
--- NOTE | 2025-09-08 09:33 | PT.ODAYNRPT ---
PT Outpatient Daily Note OP Daily Note Outpatient Physical Therapy Treatment Date: 09/08/25 Visit Reasons: left knee surgery Subjective: Pt feels that her knee is at 90 deg of flexion. Pt is walking better with less pain and improved standing tolerance Objective: Left Knee Flexion AAROM: 90 deg Assessment: poor tolerance to passive stretching today. Pt can only tolerate 2 reps of stretching due to pain. Pt was explained and educated regarding the importance of stretches to improve knee ROM. Plan: Continue with PT Length of Time (minutes) of Treatment: 30 Minutes Procedure Charges Therapeutic Exercise 30 minutes: Yes
--- NOTE | 2025-09-10 16:14 | PT.ODAYNRPT ---
PT Outpatient Daily Note OP Daily Note Outpatient Physical Therapy Treatment Date: 09/10/25 Visit Reasons: left knee surgery Subjective: Pt's knee is hurting more and really wants to get to 90 deg of flexion before she see her surgeon. Pt does not want a knee MARKY Objective: Left Knee AROM: 75 deg Left Knee PROM: 81 deg Assessment: Pt demonstrate improved left knee ROM, however, continue to reports of pain and swelling. Today patient was able to complete full cycle on sci-fit for a few mins. Plan: Continue with PT Length of Time (minutes) of Treatment: 30 Minutes Procedure Charges Therapeutic Exercise 30 minutes: Yes
--- NOTE | 2025-09-14 11:47 | PT.ODAYNRPT ---
PT Outpatient Daily Note OP Daily Note Outpatient Physical Therapy Treatment Date: 09/14/25 Visit Reasons: left knee surgery Subjective: Pt has not been stretching much at home due to fear of pain. Pt's knee is very stiff this morning with more pain than usual. Objective: Please see flow chart for list of ther ex performed Assessment: improve knee flexion in preswing during gait, however, continues to have poor tolerance to progressive passive stretching due to pain. Plan: Continue with PT Length of Time (minutes) of Treatment: 30 Minutes Procedure Charges Therapeutic Exercise 30 minutes: Yes
--- NOTE | 2025-09-25 09:06 | PT.ODS1RPT ---
PT OP Progress/Discharge Note Date of Service: 09/25/26 Progress Note/DC Note Progress Note/Discharge Note: DC Note Patient Information Visit Reasons: left knee surgery Service Discharge Date: 09/25/25 Status Assessment: Pt is s/p knee MARKY 09/23/25. Pt mentioned she will be doing homehealth PT for several weeks. At this time Pt will be d/c from outpatient physical therapy until further notice. Pt will need a new PT order to restart physical therapy due to change in medical status; thank you for your referrals
== END 2025-09-20 23:59 | disposition home or self-care (01) ==
LOC: CPTX 08:30
PROVIDERS: PCP Orthopaedic Surgery Adult Reconstructive Orthopaedic Surgery; Referring Provider Orthopaedic Surgery Adult Reconstructive Orthopaedic Surgery; Visit Provider Orthopaedic Surgery Adult Reconstructive Orthopaedic Surgery
DX: Z47.1 Aftercare following joint replacement surgery (principal); Z96.652 Presence of left artificial knee joint; M25.562 Pain in left knee; R26.2 Difficulty in walking, not elsewhere classified; R26.89 Other abnormalities of gait and mobility
CPT/HCPCS: 97110

== ENCOUNTER 2025-09-15 10:24 | Outpatient (AMB) | payer OTHER, SELFPAY ==
[2025-09-15 10:49] VITALS: BP 154/101; PULSE 72; RESP 19; TEMP 36.6; O2SAT 96; BMI 26.6
--- NOTE | 2025-09-15 10:49 | ORTHONT_ITS ---
Vital signs 09/15/25 10:49 Height 1.65 m Height Method Stated Weight 72.631 kg Weight Measurement Method Standing Scale BMI 26.6 BP 154/101 H Blood Pressure Source Automatic Cuff Blood Pressure Location Right Upper Arm Position Sitting Respiration 19 Pulse 72 Pulse Source Monitor Temp 97.8 F Temp Source Temporal Artery Scan Pulse Oximetry (%) 96 Oxygen Delivery Method Room Air Med/Allergies Allergies & Medications Allergies codeine Allergy (Intermediate, Verified 09/15/25 10:50) Headache Medication Reconciliation amlodipine 10 mg tablet 10 mg PO DAILY 07/09/25 [History Confirmed 09/15/25] atorvastatin 40 mg tablet 40 mg PO DAILY 07/09/25 [History Confirmed 09/15/25] fluoxetine 20 mg capsule 20 mg PO DAILY 07/09/25 [History Confirmed 09/15/25] losartan 50 mg tablet 50 mg PO DAILY 07/09/25 [History Confirmed 09/15/25] aspirin 81 mg tablet,delayed release 81 mg PO BID #60 tabs 07/15/25 [Rx Confirmed 09/15/25] doxycycline hyclate 100 mg tablet 100 mg PO BID #14 tabs 07/15/25 [Rx Confirmed 09/15/25] sennosides 8.6 mg-docusate sodium 50 mg tablet (Senna-S) 1 tab-cap PO QDAY #30 tabs 07/15/25 [Rx Confirmed 09/15/25] acetaminophen 500 mg tablet (Acetaminophen Extra Strength) 1,000 mg (2 x 500 mg) PO Q6H PRN pain #90 tabs 07/22/25 [Rx Confirmed 09/15/25] oxycodone 5 mg tablet 5 mg PO Q6H PRN pain #28 tabs 07/22/25 [Rx Confirmed 09/15/25] gabapentin 300 mg capsule 300 mg PO .qhs #30 caps 08/27/25 [Rx Confirmed 09/15/25] Exam Exam Patient is in no acute distress and is cooperative with the examination today. Breathing is nonlabored. In no respiratory distress. Bilateral extremities were evaluated and demonstrates sensation intact to light touch. Palpable pedal pulses are present. No significant edema is present. Bilateral hips were examined. The patient has no pain with log roll of the hips. Internal rotation to 30 degrees and external rotation to 30 degrees is painless. Negative FADIR. Left knee incisions clean dry intact. Range of motion is 5 to 75 degrees Assessment and Plan Problem List (1) Arthritis of left knee: Status: Acute Plan: Frances Is a pleasant 69-year-old female with severe left knee pain and left knee arthritis. Right knee still demonstrates meniscal tear at 75 degrees. We thus discussed manipulation under anesthesia as a reasonable option. We will plan to do this next Sunday on 09/23 as this would be well before the 3-month window. We discussed the risk of the procedure including persistent stiffness, infection, fracture, and ruptured extensor mechanism. We discussed the purpose of physical therapy after surgery Advanced Care Planning Discussion Advance care planning discussed with:: patient Office Procedures GNS Level of Care Nursing/Assessment Patient Status: Established Patient Nursing Assessment/Reassesment: Medication Reconciliation, Update PMH in EMR and Vital Signs Coordination of Care: Complex Care and Chronic Disease 1-5, Education Complex Pt/Fam, Consent,records obtained, informed consent, Results/Orders obtained and Staff clarify orders Special Needs: Language special needs Established Patient Charge Established Patient Point Assignment: 95 Established Patient Point Charge: EP Level 3 (80-115) MA Intake Visit Data Collection New Patient or Established: Established Patient (seen at [facility] within 3 years) Reason for Visit:: MOTION CHECK/XRAYS Seen by Clinical Staff ONLY (RN/MA): No Verbal consent obtained for Telemed visit?: No 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 PCP or OBGYN visit in last 3 months: Yes Hx Now: No Do You Feel Safe at Home: Yes Authorities Contacted: N/A Questionairres Past Medical History Past Medical History Have you ever been diagnosed with any of the following: Neurological Problems Seizures: No Cardiology Problems Hypercholesterolemia: Yes Congestive Heart Failure: No Hypertension: Yes Respiratory Problems Chronic Obstructive Pulmonary Disease (COPD): No Smoking: No Smoking Cessation Counseling: No Smoking Exposure: No Stomache/Intestinal Problems Obesity: Yes Genital/Urinary Problems Renal Disease: No Reproductive Problems Previous Pregnancies: Yes Musculoskeletal Problems Arthritis: Yes Endocrine Problems Diabetes Mellitus Type 1: No Diabetes Mellitus Type 2: No Psychologic Problems Depression: Yes Other Problems Hospitalization: No Shingles: No Blood Transfusions: No Blood Transfusion Reaction: No Anesthesia Reactions: No Chicken Pox: Yes Cancer: No Subjective Visit Visit for: post op #2 and knee Immunization / Flu Flu Vaccine in the Last 12 Months: No Flu Vaccine Exclusion Criteria: No Exclusion Criteria History of Present Illness Chief complaint: MOTION/XRAYS Frances is a pleasant 69-year-old Female with Status post left total knee replacement. She is doing well. She is 8 weeks status post total knee replacement. Her knee is stiff and she would like to start physical therapy. Range of motion 0 to 75 degrees Personal History Occupation: DISABLE Red flag PMH: BMI Pain Pain level (0-10): 10 Pain duration: ALL DAY Pain location: inside (medial), outside (lateral) and anterior Pain quality: sharp, dull and aching Pain timing: increases with activity Associated signs & symptoms: none Ambulatory data Ambulatory device: walker Treatments Improvement with previous injections: No Improvement with PT: No Improvement with NSAIDS: no Review of Systems Review of Systems: All systems negative unless otherwise noted in HPI.
== END 2025-09-15 11:23 | disposition home or self-care (01) ==
LOC: HODSRG 10:24
PROVIDERS: Supervising Provider Orthopaedic Surgery Adult Reconstructive Orthopaedic Surgery; Visit Provider Orthopaedic Surgery Adult Reconstructive Orthopaedic Surgery
DX: Z47.1 Aftercare following joint replacement surgery (principal); Z96.652 Presence of left artificial knee joint; M25.562 Pain in left knee; S83.206D Unspecified tear of unspecified meniscus, current injury, right knee, subsequent encounter; X58.XXXD Exposure to other specified factors, subsequent encounter; I10 Essential (primary) hypertension; E66.9 Obesity, unspecified; Z68.26 Body mass index [BMI] 26.0-26.9, adult
CPT/HCPCS: 99213; G0463

== ENCOUNTER 2025-09-23 05:35 | Day surgery (SDC) | payer OTHER, SELFPAY ==
[2025-09-22 10:35] VITALS: BMI 27.7
[2025-09-22 12:12] LABS: Basophils # (Auto) 0.0 Thou/mm3 (0.0-0.2); Basophils % (Auto) 1 % (0-2.5); Eosinophils # (Auto) 0.2 Thou/mm3 (0.0-0.5); Eosinophils % (Auto) 3 % (0-10); Hematocrit 36.8 % (36.0-46.0); Hemoglobin 12.2 g/dL (12.0-16.0); Immature Granulocytes Auto 0.00 Thou/mm3 (0.00-0.00); Lymphocytes # (Auto) 1.4 Thou/mm3 (1.0-4.8); Lymphocytes % (Auto) 30 % (10-50); Mean Corpuscular HGB Conc 33.2 g/dl (31.0-37.0); Mean Corpuscular Hemoglobin 28.3 pg (25.0-35.0); Mean Corpuscular Volume 85 fL (80-100); Monocytes # (Auto) 0.4 Thou/mm3 (0.0-0.8); Monocytes % (Auto) 8 % (0-12); Neutrophils # (Auto) 2.8 Thou/mm3 (1.8-7.7); Neutrophils % (Auto) 58 % (37-80); Nucleated Red Blood Cell # 0.00 Thou/mm3 (0.00-0.00); Nucleated Red Blood Cell % 0 /100 WBC (0); Platelet Count 324 Thou/mm3 (140-440); RDW Standard Deviation 41.7 fL (36.4-46.3); Red Blood Count 4.31 Miln/mm3 (4.00-5.20); White Blood Count 4.8 Thou/mm3 (3.6-11.0)
[2025-09-22 12:19] LABS: INR 1.0 (0.9-1.3); Partial Thromboplastin Time 27.9 Seconds (22.0-36.0); Prothrombin Time 10.9 Seconds (9.0-12.2)
[2025-09-22 13:17] LABS: Alanine Aminotransferase < 7 U/L (10-49); Albumin, Serum 5.1 gm/dL (3.4-4.8); Albumin/Globulin Ratio 2.0 (1.2-2.2); Alkaline Phosphatase 107 U/L (46-116); Anion Gap 10 (7-16); Aspartate Amino Transferase 17 U/L (0-34); BUN/Creatinine Ratio 13 Ratio (12-20); Bilirubin,Total 0.6 mg/dL (0.3-1.2); Blood Urea Nitrogen 14 mg/dL (9-23); Calcium 9.7 mg/dL (8.3-10.6); Calcium (Corrected) 9.7 mg/dL (8.5-10.1); Carbon Dioxide 26.2 mMol/L (20.0-31.0); Chloride 106 mMol/L (98-107); Creatinine (Component) 1.1 mg/dL (0.6-1.3); Estimated Creatinine Clearance 46.7 mL/min (>60); Globulin 2.6 gm/dL (2.3-3.5); Glucose 101 mg/dL (74-106); Osmolality,Calculated 283 (275-295); Potassium 4.1 mMol/L (3.4-5.1); Sodium 142 mMol/L (136-145); Total Protein 7.7 gm/dL (5.7-8.2); eGFR 54 See Note
[2025-09-23] VITALS (15 sets, daily range): BP systolic 119–167; BP diastolic 69–99; PULSE 56–85; RESP 12–20; TEMP 36.2–36.3; O2SAT 94–100; BMI 27.5
[2025-09-23] MEDS: ACETAMINOPHEN 325 MG TABLET 650 MG PO (06:23)
[2025-09-23] MEDS: PREGABALIN 75 MG CAPSULE PO (06:24)
[2025-09-23] MEDS: MELOXICAM 7.5 MG TABLET PO (06:24)
--- NOTE | 2025-09-23 07:47 | PD.SUROPNT ---
Date of Procedure 09/23/25 Pre Op Diagnosis left knee arthrofibrosis Post Op Diagnosis left knee arthrofibrosis Procedure left knee manipulation under anesthesia Findings preop rom 0-55 degrees Procedure Description Indications: Patient is a 70-year-old female with arthrofibrosis of the left knee. We discussed manipulation under anesthesia as a reasonable option. We discussed the risk of surgery including rupture of the extensor mechanism as well as fracture and persistent stiffness. The patient understands the risk of the procedure And the signed witness consent was placed in the chart Procedure in detail The patient was brought to the operating room. Timeout was performed To verify the correct site. We first assessed range of motion after adequate anesthesia. Range of motion was 0 to 55 degrees. Once the patient received adequate anesthesia, we gently placed the knee in gradual flexion. Audible crackles were heard as the scar tissue was broken. Final range of motion was 0 and 130 degrees Postop plan The patient is to resume physical therapy aggressively Pathology / specimen None Pathology comment: none Estimated Blood Loss 0 Surgeon Ajit Jenkins MD Surgical Staff Operation Date: 09/23/25 07:30 <No data on this case meets the specified criteria>
--- NOTE | 2025-09-23 07:52 | SUR.PHASEII ---
Pt. arrived to recovery via rmason, eyes closed, responds to verbal commands, no c/o pain or nausea at this time, VSS, pedal pulses star. palpable and present, cap refill <3 seconds to star., great toes. Lung sounds clear, equal expansion star., pt. receiving 2 liters 02 via ME. Report received from Dr. Olsen and Maria Teresa SHIELDS.
--- NOTE | 2025-09-23 08:00 | SUR.PHASEII ---
assumed care over pt at this time. pt asleep but responds to voice, breathing unlabored on nc 2l. v/s stable. report received from Kady SHIELDS.
[2025-09-23] MEDS: fentaNYL CIT INJ 50 mCg/ML AMP 2ML IVP ×3 (08:22→10:03)
[2025-09-23] MEDS: ONDANSETRON INJ 2 MG/ML INJ 2 ML 4 MG IVP (08:28)
--- NOTE | 2025-09-23 08:58 | XR_ITS ---
EXAMINATION: Left knee 2 views TECHNIQUE: AP lateral left knee 2 views Date and time: September 23, 2025, 0918 hours INDICATIONS: Closed manipulation left knee FINDINGS: Significant osteopenia Total left knee arthroplasty. Satisfactory alignment Large knee effusion Prominent osteopenia IMPRESSION: Total left knee arthroplasty with satisfactory alignment
--- NOTE | 2025-09-23 09:02 | SUR.PHASEII ---
pt able to tolerate oral fluids without difficulty swallowing or nausea/vomiting.
--- NOTE | 2025-09-23 10:32 | SUR.PHASEII ---
pt awake and alert, breathing unlabored on room air. v/s stable. pt able to transfer to wheelchair. d/c instructions given with Yfn, all questions answered. pt d/c via wheelchair with all belongings.
== END 2025-09-23 10:32 | disposition home or self-care (01) ==
PROVIDERS: Anesthesiology; Referring Provider Orthopaedic Surgery Adult Reconstructive Orthopaedic Surgery; Visit Provider Orthopaedic Surgery Adult Reconstructive Orthopaedic Surgery
PROC: (CPT 27570; principal; 2025-09-23 07:30)
DX: M24.662 Ankylosis, left knee (principal)
CPT/HCPCS: 27570; 36415; 73560; 80053; 85025; 85610; 85730; A4649; J2405; J2704; J2919; J3010; J3490; A9270

== ENCOUNTER 2025-10-08 10:49 | Outpatient (AMB) | payer OTHER, SELFPAY ==
[2025-10-08 11:24] VITALS: BP 152/82; PULSE 50; RESP 18; TEMP 36.4; O2SAT 98; BMI 27.3
--- NOTE | 2025-10-08 11:24 | PD.ORTHCLVIS ---
Vital signs 10/08/25 11:24 Height 1.63 m Height Method Stated Weight 72.717 kg Weight Measurement Method Standing Scale BMI 27.3 BP 152/82 H Blood Pressure Source Automatic Cuff Blood Pressure Location Left Upper Arm Position Sitting Respiration 18 Pulse 50 L Pulse Source Monitor Temp 97.6 F Temp Source Temporal Artery Scan Pulse Oximetry (%) 98 Oxygen Delivery Method Room Air Med/Allergies Allergies & Medications Allergies codeine Allergy (Intermediate, Verified 10/08/25 11:25) Headache Medication Reconciliation amlodipine 10 mg tablet 10 mg PO DAILY 07/09/25 [History Confirmed 10/08/25] atorvastatin 40 mg tablet 40 mg PO DAILY 07/09/25 [History Confirmed 10/08/25] fluoxetine 20 mg capsule 20 mg PO DAILY 07/09/25 [History Confirmed 10/08/25] losartan 50 mg tablet 50 mg PO DAILY 07/09/25 [History Confirmed 10/08/25] acetaminophen 500 mg tablet (Acetaminophen Extra Strength) 1,000 mg (2 x 500 mg) PO Q6H PRN pain #90 tabs 07/22/25 [Rx Confirmed 10/08/25] oxycodone 5 mg tablet 5 mg PO Q6H PRN pain #28 tabs 09/23/25 [Rx Confirmed 10/08/25] sennosides 8.6 mg-docusate sodium 50 mg tablet (Senna-S) 1 tab-cap PO QDAY #30 tabs 09/23/25 [Rx Confirmed 10/08/25] gabapentin 300 mg capsule 300 mg PO .qhs #30 caps 10/08/25 [Rx] Exam Exam Patient is in no acute distress and is cooperative with the examination today. Breathing is nonlabored. In no respiratory distress. Bilateral extremities were evaluated and demonstrates sensation intact to light touch. Palpable pedal pulses are present. No significant edema is present. Bilateral hips were examined. The patient has no pain with log roll of the hips. Internal rotation to 30 degrees and external rotation to 30 degrees is painless. Negative FADIR. Left knee incisions clean dry intact. Range of motion is 0 to 100 degrees Assessment and Plan Problem List (1) Arthritis of left knee: Status: Acute Plan: Frances Is a pleasant 69-year-old female with severe left knee pain and left knee arthritis. Her range of motion is significantly improved after her total knee replacement and manipulation under anesthesia. We want her to work aggressively with therapy. She is happy with her progress Advanced Care Planning Discussion Advance care planning discussed with:: patient Office Procedures GNS Level of Care Nursing/Assessment Patient Status: Established Patient Nursing Assessment/Reassesment: Medication Reconciliation, Update PMH in EMR and Vital Signs Coordination of Care: Complex Care and Chronic Disease 1-5, Education Complex Pt/Fam, Consent,records obtained, informed consent, Results/Orders obtained and Staff clarify orders Established Patient Charge Established Patient Point Assignment: 95 Established Patient Point Charge: EP Level 3 (80-115) MA Intake Visit Data Collection New Patient or Established: Established Patient (seen at [facility] within 3 years) Reason for Visit:: 2 WK KNEE MANIPULATION Seen by Clinical Staff ONLY (RN/MA): No Verbal consent obtained for Telemed visit?: No Geriatric Nurse Assistant Required: Yes PCP or OBGYN visit in last 3 months: Yes Hx Now: No Do You Feel Safe at Home: Yes Authorities Contacted: N/A Questionairres Past Medical History Past Medical History Have you ever been diagnosed with any of the following: Neurological Problems Seizures: No Cardiology Problems Hypercholesterolemia: Yes Congestive Heart Failure: No Edema: Yes Hypertension: Yes Respiratory Problems Chronic Obstructive Pulmonary Disease (COPD): No Smoking: No Smoking Cessation Counseling: No Smoking Exposure: No Stomache/Intestinal Problems Obesity: Yes Genital/Urinary Problems Renal Disease: No Reproductive Problems Previous Pregnancies: Yes Musculoskeletal Problems Arthritis: Yes Endocrine Problems Diabetes Mellitus Type 1: No Diabetes Mellitus Type 2: No Psychologic Problems Depression: Yes Other Problems Hospitalization: No Shingles: No Blood Transfusions: No Blood Transfusion Reaction: No Anesthesia Reactions: Yes (N/V) Chicken Pox: Yes Cancer: No Subjective Visit Visit for: follow up visit and knee Immunization / Flu Flu Vaccine in the Last 12 Months: No Flu Vaccine Exclusion Criteria: No Exclusion Criteria History of Present Illness Chief complaint: KNEE MANIPULATION Frances is a pleasant 69-year-old Female with Status post left total knee replacement. She is doing well. She is 2 weeks postop from a manipulation under anesthesia. Her range of motion is significantly improved Personal History Occupation: DISABLE Red flag PMH: BMI Pain Pain level (0-10): 10 Pain duration: ALL DAY Pain location: inside (medial), outside (lateral) and anterior Pain quality: sharp, dull and aching Pain timing: increases with activity Associated signs & symptoms: none Ambulatory data Ambulatory device: walker Treatments Improvement with previous injections: No Improvement with PT: No Improvement with NSAIDS: no Review of Systems Review of Systems: All systems negative unless otherwise noted in HPI.
== END 2025-10-08 11:30 | disposition home or self-care (01) ==
LOC: HODSRG 10:49
PROVIDERS: Supervising Provider Orthopaedic Surgery Adult Reconstructive Orthopaedic Surgery; Visit Provider Orthopaedic Surgery Adult Reconstructive Orthopaedic Surgery
DX: M17.12 Unilateral primary osteoarthritis, left knee (principal)
CPT/HCPCS: 99213; G0463